=== PATIENT | male | born 1985 | race American Indian/Alaskan Native ===

== ENCOUNTER 2018-10-19 12:16 | Emergency (ER) | payer SELFPAY ==
[2018-10-19 12:22] VITALS: BP 121/77
--- NOTE | 2018-10-19 14:05 | Emergency Department Report ---
HPI - General Chief Complaint: Urogenital-Male Time Seen by Provider: 10/19/18 13:32 - HPI HPI: 32-year-old male presents to the emergency department with the complaint of needing an STD check. He says that he was sent a text message from his girlfriend saying that she was positive for chlamydia. The patient denies any penile discharge, dysuria, pain or swelling to the penis or testicles, any rash or lesions. The patient also says that he has a history of chlamydia in the past and he does not have any of those symptoms. ED Past Medical Hx - Past Medical History Previous Medical History?: No - Surgical History Past Surgical History?: No - Social History Smoking Status: Never Smoker Substance Use Type: Marijuana ED Review of Systems ROS: Stated complaint: STD CHECK Other details as noted in HPI Comment: All other systems reviewed and negative Genitourinary: denies: dysuria, frequency, discharge, testicular pain Physical Exam - Physical Exam Vital Signs: Vital Signs 10/19/18 12:20 Temperature 98.6 F Pulse Rate 88 Respiratory 18 Rate Blood Pressure 121/77 O2 Sat by Pulse 99 Oximetry ED Course Vital Signs 10/19/18 12:20 Temperature 98.6 F Pulse Rate 88 Respiratory 18 Rate Blood Pressure 121/77 O2 Sat by Pulse 99 Oximetry Critical care attestation.: If time is entered above; I have spent that time in minutes in the direct care of this critically ill patient, excluding procedure time. ED Disposition Clinical Impression: Potential exposure to STD Disposition: DC-01 TO HOME OR SELFCARE Is pt being admited?: No Condition: Stable Instructions: Sexually Transmitted Diseases (ED), Safe Sex (ED) Additional Instructions: I have given you a outpatient referral for the local [facility] and [facility]. You can make an appointment to be seen at either of these facilities for STD checks/testing and treatment if necessary. Return to the emergency department with any symptoms, concerns, or with any acute distress. You should avoid any sexual intercourse or contact until it has been at least 7 days after your partner was treated for the culture positive chlamydia. However, if you do have any undiagnosed or underlying STDs, you can still pass this along to your partner or any sexual partner. Practice safe sex. Referrals: [facility] [Outside] - 2-3 Days [facility] [Outside] - 2-3 Days Time of Disposition: 14:05
== END 2018-10-19 14:07 | disposition left against medical advice (07) ==
LOC: ED 12:16
DX: Z20.2 Contact with and (suspected) exposure to infections with a predominantly sexual mode of transmission (principal); F12.10 Cannabis abuse, uncomplicated

== ENCOUNTER 2019-02-14 00:16 | Emergency (ER) | payer SELFPAY ==
[2019-02-14 06:58] VITALS: BP 114/77
--- NOTE | 2019-02-14 08:47 | Emergency Department Report ---
Blank Doc - Documentation Documentation: Patient was seen by me for a reservation agent only. Patient left before being examin ed, treated, or diagnosis. When entering the room patient was not there. RN tried to contact patient several times with no success. As per RN, patient was clearly instructed by RN that if patient leaves without being fully evaluated and treated that the condition may be serious and/or life threatening if not treated. Patient left without being seen.
== END 2019-02-14 08:00 | disposition left against medical advice (07) ==
LOC: ED 00:16
DX: K08.89 Other specified disorders of teeth and supporting structures (principal); Z53.21 Procedure and treatment not carried out due to patient leaving prior to being seen by health care provider